=== PATIENT | male | born 1980 | race Caucasian/White ===

== ENCOUNTER 2025-02-25 11:57 | Outpatient (REF) | payer OTHER, SELFPAY ==
[2025-02-25 15:03] LABS: Cholesterol 140 mg/dL (<200); HDL Cholesterol 40 mg/dL (>40); Triglycerides 94 mg/dL (<150)
[2025-02-26 07:13] LABS: HBS Num1 9.11 mIU/mL (0-7.99); HBc Num1 0.22 S/CO (0.00-0.79); HBsAGNum1 0.40 S/CO (0.00-0.99); HIV Num 1 0.07 S/CO (0.00-0.99); Hepatitis B Surface Antigen Negative (Negative); ~HepC Num1 0.11 S/CO (0.00-0.79); ~Hepatitis C Antibody Nonreactive (Nonreactive)
[2025-02-26 08:12] LABS: HBS Num2 9.19 mIU/mL (0-7.99); HBS Num3 8.64 mIU/mL (0-7.99); ~Hepatitis B Surface Antibody GRAYZONE (Nonreactive)
== END 2025-02-25 11:58 | disposition home or self-care (01) ==
LOC: HO.CHCLDS 11:57
DX: Z11.4 Encounter for screening for human immunodeficiency virus [HIV] (principal); Z13.6 Encounter for screening for cardiovascular disorders; Z76.89 Persons encountering health services in other specified circumstances
CPT/HCPCS: 36415; 80061; 86704; 86706; 86803; 87340; 87389